=== PATIENT | male | born 1995 | race African-American/Black ===

== ENCOUNTER 2024-02-17 22:17 | Emergency (ER) | payer MEDICAID, OTHER ==
[~2024-02-17] VITALS: Ht 180.3 cm; Wt 72.6 kg
[2024-02-17 22:29] VITALS: BP 134/79; TEMP 98.6; O2SAT 98
== END 2024-02-18 00:52 | disposition home or self-care (01) ==
LOC: ER 22:23
DX: R09.A9 Foreign body sensation, other site (principal)
CPT/HCPCS: 73140-TC